=== PATIENT | female | born 1970 | race African-American/Black ===

== ENCOUNTER 2018-05-11 06:15 | Emergency (ER) | payer MEDICAID ==
[~2018-05-11] VITALS: Ht 170.2 cm; Wt 108.9 kg
[2018-05-11 08:18] LABS: Basophils # (auto) 0.1 uL; Basophils % (auto) 0.8 % (0.0-2.0); Eosinophils # (auto) 0.3 uL; Eosinophils % (auto) 3.8 % (0.0-7.0); Hematocrit 44.8 % (36.0-46.0); Hemoglobin 15.3 g/dL (12.2-16.2); Lymphocytes # (auto) 2.1 uL; Lymphocytes % (auto) 30.6 % (10.0-50.0); Mean Corpuscular Hemoglobin 27.3 pg (28.0-32.0); Mean Corpuscular Hgb Conc. 34.1 g/dL (32.0-36.0); Monocytes # (auto) 0.5 uL; Monocytes % (auto) 6.9 % (0.0-12.0); Neutrophils # (auto) 3.9 uL; Neutrophils % (auto) 57.9 % (37.0-80.0); Nucleated Red Blood Cells % 0.2 %; Platelet Count (auto) 308 10^3/uL (140-450); Red Cell Distribution Width 13.5 % (11.8-14.3); White Blood Cell 6.8 10^3/uL (4.4-10.8)
[2018-05-11 08:32] LABS: INR 0.96 (0.9-1.15); Partial Thromboplastin Time 21.4 sec (23.78-33.04); Prothrombin Time 10.3 sec (9.27-12.13)
[2018-05-11 08:37] LABS: Albumin 4.4 g/dL (3.4-5.0); Anion Gap 11 (5-15); Calcium 9.9 mg/dL (8.5-10.1); Carbon Dioxide 28 mmol/L (21-32); Chloride 98 mmol/L (98-107); Glucose 125 mg/dL (74-106); Magnesium 2.4 mg/dL (1.6-2.6); Potassium 3.8 mmol/L (3.5-5.1); Sodium 137 mmol/L (136-145)
[2018-05-11 08:44] LABS: Alanine Aminotransferase 29 U/L (13-56); Alkaline Phosphatase 110 U/L (45-117); Aspartate Aminotransferase 14 U/L (15-37); BUN/Creatinine Ratio 16.4; Bilirubin, Total 0.6 mg/dL (0.2-1.0); Blood Urea Nitrogen 20 mg/dL (7-18); GFR African American 61 mL/min; GFR Non-African American 50 mL/min; Total Protein 9.5 g/dL (6.4-8.2)
[2018-05-11] MEDS: ASPirin 81 mg TAB PO ONE (10:41)
[2018-05-11 11:59] LABS: Urine Bacteria FEW /hpf (None Seen); Urine Blood TRACE /uL (Negative); Urine Mucus FEW (None Seen); Urine Specific Gravity 1.012 (1.001-1.035); Urine WBC 6 /hpf (0 - 5)
[2018-05-11 13:13] VITALS: BP 112/81
== END 2018-05-11 13:46 | disposition home or self-care (01) ==
LOC: EDBD 06:15 → ER 06:15 → EDUNIT# 06:15 → ER 13:46
DX: R07.89 Other chest pain (principal); E07.9 Disorder of thyroid, unspecified; N39.0 Urinary tract infection, site not specified; E11.9 Type 2 diabetes mellitus without complications; I10 Essential (primary) hypertension; Z90.710 Acquired absence of both cervix and uterus; Z88.0 Allergy status to penicillin
CPT/HCPCS: 36415; 71045; 80053; 81001; 81025; 83735; 83880; 84443; 84484; 85025; 85610; 85730; 93005